=== PATIENT | male | born 1990 | race Caucasian/White ===

== ENCOUNTER 2018-03-04 04:16 | Emergency (ER) | END 2018-03-04 06:08 | disposition home or self-care (01) ==

== ENCOUNTER 2018-03-09 18:30 | Emergency (ER) | END 2018-03-09 19:24 | disposition home or self-care (01) ==

== ENCOUNTER 2019-04-22 07:33 | Emergency (ER) | payer BC ==
[~2019-04-22] VITALS: Wt 90.0 kg
[~2019-04-22 07:33] MED LIST: ACET-1359; AMOX1TAB10 PO; CLIN150C18 PO; CLIN300C10 PO; IBUP-1542 PO; IBUP200C11; PRED20TA PO; TYL500 PO
[2019-04-22 07:36] VITALS: BP 152/71; PULSE 118; RESP 20
[2019-04-22] MEDS ORDERED: ONDANSETRON 4 MG INJ IV STA (07:46)
[2019-04-22] MEDS ORDERED: SOD CHLORIDE 0.9% 1,000 ML IV STA (07:46)
[2019-04-22] MEDS ORDERED: FAMOTIDINE 20 MG INJ IV STA (07:46)
[2019-04-22] MEDS ORDERED: CIPROFLOXACIN 500 MG TAB PO STA (07:46)
--- NOTE | 2019-04-22 07:47 | ERD ---
ER Documentation Chief Complaint Chief Complaint VOMITING AND DIARRHEA X 2 DAYS HPI 28-year-old male, in his usual state of health, presents to the emergency department, complaining of 2 days with vomiting and diarrhea, after eating suspicious food at a alliance party. The patient reports approximately 6 episodes of nonbloody, nonmucous diarrhea, preceded by mild intermittent cramping abdominal pain, he also reports persistent nausea and 3 episodes of postprandial emesis last one more than 12 hours ago. Otherwise, the patient denies fever, no chills, no rashes, no upper respiratory symptoms, no history of recent traveling. ROS All systems reviewed and are negative except as per history of present illness. Medications Home Meds Active Scripts Ondansetron Hcl* (Zofran*) 4 Mg Tablet, 4 MG PO Q8H PRN for NAUSEA AND/OR VOMITING, #10 TAB Prov:REE LANE MD 04/22/19 Ranitidine Hcl* (Zantac*) 150 Mg Tablet, 150 MG PO BID PRN for EPIGASTRIC PAIN, #14 TAB Prov:REE LANE MD 04/22/19 Ciprofloxacin Hcl* (Ciprofloxacin Hcl*) 250 Mg Tablet, 250 MG PO BID for 3 Days, #6 TAB Prov:REE LANE MD 04/22/19 Amoxicillin/Potassium Clav (Amox-Clav 875-125 mg Tablet) 875-125 mg Tab, 1 TAB PO BID for 7 Days, #14 TAB Prov:MINOR PHELPS PA-C 03/09/18 Prednisone* (Prednisone*) 20 Mg Tab, 40 MG PO DAILY for 4 Days, TAB Prov:MINOR PHELPS PA-C 03/09/18 Ibuprofen* (Ibuprofen*) 600 Mg Tablet, 600 MG PO Q6, #30 TAB Prov:OVIDIO FISHER PA-C 03/04/18 Acetaminophen* (Tylenol*) 500 Mg Tab, 1000 MG PO Q4H PRN for PAIN AND OR ELEVATED TEMP, #30 TAB Prov:OVIDIO FISHER PA-C 03/04/18 Clindamycin Hcl* (Clindamycin Hcl*) 150 Mg Capsule, 450 MG PO TID for 10 Days, CAP Prov:OVIDIO FISHER PA-C 03/04/18 Clindamycin Hcl* (Clindamycin Hcl*) 300 Mg Capsule, 300 MG PO TID for 10 Days, CAP Prov:OVIDIO FISHER LAURA 03/04/18 Reported Medications Ibuprofen* (Advil*) 200 Mg Capsule 04/24/13 Acetaminophen (TYLENOL 500 MG TAB) 500 Mg Tab 04/24/13 [None] No Conflict Check 03/15/11 Allergies Allergies: Coded Allergies: amoxicillin (Verified Allergy, Mild, 03/04/18) clavulanic acid (Verified Allergy, Mild, 03/04/18) sulfamethoxazole (Verified Allergy, Mild, 03/04/18) trimethoprim (Verified Allergy, Mild, 03/04/18) PMhx/Soc History of Surgery: No Anesthesia Reaction: No Hx Neurological Disorder: No Hx Respiratory Disorders: No Hx Cardiac Disorders: No Hx Psychiatric Problems: No Hx Miscellaneous Medical Probl: No Hx Alcohol Use: No Hx Substance Use: No Hx Tobacco Use: Yes Smoking Status: Former smoker FmHx Family History: No diabetes, No coronary disease Physical Exam Vitals Vital Signs Date Temp Pulse Resp B/P (MAP) Pulse Ox O2 O2 Flow FiO2 Time Delivery Rate 04/22/19 100.4 118 20 152/71 99 07:36 (98) Physical Exam Patient alert, oriented, vital signs showed mild tachycardia. HEAD: Normocephalic, atraumatic. EYES: PERRLA, EOMI, Sclera and conjunctiva appear normal. NOSE: Clear and patent nostrils. EARS: Canals clear, tympanic membranes WNL. MOUTH: Dry oral mucosa, normal lips and tongue, no oral lesions. THROAT: Normal oropharynx, no tonsillar exudates. NECK: Supple, No lymphadenopathy. Full ROM without pain or tenderness. HEART: RRR, no rubs, murmurs, clicks or gallops. LUNGS: Clear to auscultation. ABDOMEN: Soft, non-tender without masses or hepatosplenomegaly. EXTREMITIES: No edema bilaterally. BACK: Full ROM, no deformity, normal back exam NEURO: Cranial nerves grossly intact, no motor or sensory deficit SKIN: No rashes, no petechia. Result Diagram: 04/22/19 0757 04/22/19 0757 Results 24 hrs Laboratory Tests Test 04/22/19 07:57 White Blood Count 11.9 10^3/ul Red Blood Count 5.76 10^6/ul Hemoglobin 17.3 g/dl Hematocrit 51.3 % Mean Corpuscular Volume 89.1 fl Mean Corpuscular Hemoglobin 30.0 pg Mean Corpuscular Hemoglobin Concent 33.7 g/dl Red Cell Distribution Width 12.7 % Platelet Count 219 10^3/UL Mean Platelet Volume 10.0 fl Immature Granulocytes % 0.500 % Neutrophils % 86.8 % Lymphocytes % 7.5 % Monocytes % 4.5 % Eosinophils % 0.5 % Basophils % 0.2 % Nucleated Red Blood Cells % 0.0 /100WBC Immature Granulocytes # 0.060 10^3/ul Neutrophils # 10.3 10^3/ul Lymphocytes # 0.9 10^3/ul Monocytes # 0.5 10^3/ul Eosinophils # 0.1 10^3/ul Basophils # 0.0 10^3/ul Nucleated Red Blood Cells # 0.0 10^3/ul Urine Color YELLOW Urine Clarity CLEAR Urine pH 5.0 Urine Specific [place] 1.023 Urine Ketones NEGATIVE mg/dL Urine Nitrite NEGATIVE mg/dL Urine Bilirubin NEGATIVE mg/dL Urine Urobilinogen NEGATIVE mg/dL Urine Leukocyte Esterase NEGATIVE Suzy/ul Urine Hemoglobin NEGATIVE mg/dL Urine Glucose NEGATIVE mg/dL Urine Total Protein NEGATIVE mg/dl Sodium Level 138 mmol/L Potassium Level 3.8 mmol/L Chloride Level 100 mmol/L Carbon Dioxide Level 28 mmol/L Anion Gap 10 Blood Urea Nitrogen 12 mg/dl Creatinine 1.08 mg/dl Est Glomerular Filtrat Rate mL/min > 60 mL/min Glucose Level 115 mg/dl Calcium Level 9.1 mg/dl Total Bilirubin 0.8 mg/dl Direct Bilirubin 0.00 mg/dl Indirect Bilirubin 0.8 mg/dl Aspartate Amino Transf (AST/SGOT) 34 IU/L Alanine Aminotransferase (ALT/SGPT) 62 IU/L Alkaline Phosphatase 61 IU/L Total Protein 7.8 g/dl Albumin 4.6 g/dl Globulin 3.20 g/dl Albumin/Globulin Ratio 1.43 Lipase 49 U/L Current Medications Medications Dose Sig/Ammon Start Time Status Last (Trade) Ordered Route PRN Stop Time Admin Dose Reason Admin Sodium 1,000 ml @ Q1H STAT 04/22/19 DC 04/22/19 Chloride 1,000 mls/hr IV 07:46 07:56 04/22/19 08:45 Ondansetron 4 mg ONCE STAT 04/22/19 DC 04/22/19 HCl (Zofran IV 07:46 07:56 Inj) 04/22/19 07:52 Famotidine 20 mg ONCE STAT 04/22/19 DC 04/22/19 (Pepcid Iv) IV 07:46 07:56 04/22/19 07:51 500 mg ONCE STAT 04/22/19 DC 04/22/19 Ciprofloxacin PO 07:46 07:56 (Cipro) 04/22/19 07:51 Procedures/MDM Physical exam unremarkable, patient in no distress, hydrated, adequate oral intake, abdomen, soft, nontender, no peritoneal signs. Differential diagnosis include but not limited to: gastrointestinal infection bacterial/viral, UTI, appendicitis, colitis, food poisoning, food intolerance. Low suspicion for acute abdomen Physical examination and clinical presentation consistent most likely with viral gastroenteritis. During the ED course the patient remained stable, overall improvement of the symptoms after receiving treatment in the emergency department with IV fluids. Clinical impression discussed with the patient who agrees with management. The patient is stable to be discharged home, Some side effects of prescribed medications (headache, rash, nausea, vomiting, diarrhea, interactions with other medications) were reviewed. The patient requires a follow up with the primary care provider in the next 48h. If symptoms persist, worsen or new symptoms develop, then patient should return to the ED immediately. Disclaimer: Inadvertent spelling and grammatical errors are likely due to EHR/dictation software use and do not reflect on the overall quality of patient care. Also, please note that the electronic time recorded on this note does not necessarily reflect the actual time of the patient encounter. Departure Diagnosis: Primary Impression: Acute gastroenteritis Condition: Stable Additional Instructions: Thank you very much for allowing us to participate in your care. Your health and safety is our top priority at [facility]. Call your primary care doctor TOMORROW for an appointment during the next 2-4 days and bring all the information provided. Have prescriptions filled and follow precisely the directions on the label. If the symptoms get worse and your provider is unavailable, return to the Emergency Department immediately. REE LANE MD April 22, 2019 07:47
[2019-04-22] MEDS ORDERED: CIPR-193 PO (09:07)
[2019-04-22] MEDS ORDERED: RANI150T35 PO (09:07)
[2019-04-22] MEDS ORDERED: ONDA4TAB8 PO (09:07)
== END 2019-04-22 09:15 | disposition home or self-care (01) ==
LOC: FTE 07:33
DX: K52.9 Noninfective gastroenteritis and colitis, unspecified (principal); Z87.891 Personal history of nicotine dependence
CPT/HCPCS: 36415; 80053; 81003; 83690; 85025; 96361; 96374; 96375; 99284; J2405; J7030